=== PATIENT | male | born 1945 | race Caucasian/White ===

== ENCOUNTER → 2021-03-28 | Day surgery (SDC) | payer MEDICARE, OTHER ==
[~2021-03-28] MED LIST: MONTELUKAST SODI4 M1 PO; NORCO5 PO; OMEPRAZOLE 20 M20 M1 PO
[2021-03-28 06:33] LABS: HEMATOCRIT 45.7 % (42.0-52.0); HEMOGLOBIN 15.7 gm/dL (14.0-18.0); MCH 32.5 pg (26.0-34.0); MCHC 34.3 g/dL (28.0-37.0); MCV 94.8 fL (80.0-100.0); RBC 4.82 mil/uL (4.50-6.00); RDW-CV 13.4 % (10.5-14.5); WBC 6.5 thou/uL (4.0-11.0)
[2021-03-28 06:51] LABS: CALCIUM 8.8 mg/dL (8.5-10.1); CREATININE 1.1 mg/dL (0.6-1.3); POTASSIUM 5.7 mmol/L (3.5-5.1)
--- NOTE | 2021-03-28 09:40 | EKG ---
[place] [address] ELECTROCARDIOGRAM REPORT Name: BROOK HONG SAGRARIO Room: [facility]#: [id number] Admission: 03/28/21 Attend Phys: Ant Mayer Discharge: Date of : 43 Date of Service: 03/28/21 0642 Report #: [id number] THIS REPORT FOR: //name// [facility] Test Date: 2021-03-28 Test Time: 06:42:05 Pat Name: BROOK HONG Department: Room: Gender: Operator [employer]: [place] : 1945 Requested By: Ant Emmanuel Order Number: [id number] Court MD: Dewey Kam Measurements Intervals Vaughn Rate: 59 P: 38 TX: 180 QRS: 59 QRSD: 141 T: 27 QT: 447 QTc: 443 Interpretive Statements Sinus arrhythmia Right bundle branch block Baseline wander in lead(s) V2 No previous ECG available for comparison Electronically Signed On 03-28-2021 9:40:11 CDT by Dewey Kam [email or web address] <ELECTRONICALLY SIGNED> By: Dewey Kam MD, [facility] 03/28/21 0940 [id number] Dewey Kam MD, [facility] /EPI
--- NOTE | 2021-04-01 10:47 | OP ---
[facility] [address] [place] [address] OPERATIVE REPORT Name: BROOK HONG Room: [facility].#: [id number] Admission: 03/28/21 Attend Phys: Ant Emmanuel Discharge: Date of : 43 Report #: [id number] THIS REPORT FOR: cc: Steve Guzman Mohammad K. DO Patterson, Jonathan D. MD ~ DOC #: [id number] Ant Emmanuel MD DATE OF SURGERY: 03/28/2021 PREOPERATIVE DIAGNOSIS: Incarcerated ventral incisional hernia. POSTOPERATIVE DIAGNOSIS: Incarcerated ventral incisional hernia. PROCEDURE: Laparoscopic repair of incarcerated ventral incisional hernia with mesh. SURGEON: Ant Emmanuel MD ANESTHESIA: General. ESTIMATED BLOOD LOSS: Minimal. SPECIMENS: None. DESCRIPTION OF PROCEDURE: After informed consent was obtained, the patient was brought to the operating room and placed supine. SCDs were placed and working, preoperative antibiotics were administered, general anesthesia was induced. The abdomen was prepped and draped in the usual sterile fashion. I placed a left-sided 5 mm trocar under direct vision. He had a piece of omentum stuck in a right periumbilical ventral incisional hernia. This was removed. The defect measured approximately 1 cm. An 11 cm Bard Ventralight mesh was inserted. It was tacked up to the abdominal wall with 30 absorbable tacks. It covered the defect widely. The ports were then removed under direct vision. The skin was closed with 4-0 Monocryl. Incisions were sealed with Steri-Strips. COMPLICATIONS: None. DISPOSITION: The patient was taken to recovery in satisfactory condition. MD CAMILA Correa/[place] [address] OPERATIVE REPORT Name: BROOK HONG Room: [facility]#: [id number] Admission: 03/28/21 Attend Phys: Ant Emmanuel Discharge: Date of : 43 Report #: [id number] <ELECTRONICALLY SIGNED> By: Ant Emmanuel MD 04/01/21 1047 [id number] [id number] Emmanuel MD /adalid
== END | disposition home or self-care (01) ==
LOC: M.SUR 06:08
PROVIDERS: ATTEND Surgery
DX: K43.0 Incisional hernia with obstruction, without gangrene (principal); R10.9 Unspecified abdominal pain; G47.30 Sleep apnea, unspecified; Z98.890 Other specified postprocedural states; Z87.442 Personal history of urinary calculi